=== PATIENT | female | born 1955 | race Caucasian/White ===

== ENCOUNTER 2017-05-28 01:28 | Inpatient (IN) | payer MEDICARE, BC ==
--- NOTE | 2017-05-24 19:04 | HISTORY AND PHYSICAL ---
DATE OF ADMISSION: May 28, 2017 IDENTIFICATION AND CHIEF COMPLAINT Louann is a 62-year-old woman with the chief complaint of right knee pain. HISTORY OF PRESENT ILLNESS The patient has a longstanding history of knee arthritis, progressive, painful and debilitating, refractory to conservative care. Surgery is indicated to relieve symptoms after failure of nonoperative measures. PAST MEDICAL HISTORY 1. Heart disease. 2. History of NE, status post stenting. 3. Hypertension, controlled on medication. 4. History of childhood seizure, none since the sixth grade. PAST SURGICAL HISTORY Cardiac catheterization. ALLERGIES BLEACH. No true drug allergies. CURRENT MEDICATIONS 1. Tramadol as needed. 2. Losartan 100 mg p.o. q. day. 3. Protonix 40 mg p.o. q. day. 4. Isordil 30 mg p.o. q. day. 5. Trazodone 2 mg q. day. 6. Levothyroxine 75 mcg p.o. q. day. 7. Spironolactone 50 mg p.o. q. day. SOCIAL HISTORY Negative for tobacco and alcohol use. FAMILY HISTORY Notable for father with heart disease, mother with stroke, and father also had diabetes. PHYSICAL EXAMINATION GENERAL: Louann is an obese female. She appears stated age. HEENT: Normocephalic, atraumatic. NECK: Supple. LUNGS: Clear. HEART: Regular. ABDOMEN: Soft. ORTHOPEDIC: Right knee has varus deformity. She has an effusion present. She is stiff at the end range. Extensor function intact. Gross stability is good. Calves nontender. Neurovascular function intact distally. Radiographs demonstrate end-stage knee arthritis. ASSESSMENT Right knee end-stage knee degenerative joint disease, progressive, painful, and debilitating, refractory to conservative care. PLAN Per patient request, we will proceed with total knee arthroplasty. The nature of this procedure, risks, benefits, and anticipated rehab course were reviewed, as well as the nonoperative alternatives. The risks of the procedure include, but are not limited to , major medical or anesthetic complication, infection, neurovascular injury, blood transfusion, stiffness, scarring, fracture, tendon rupture, instability, implant loosening, migration, or failure , persistent or recurrent pain, need for additional surgery, and other unforeseen. She understands and wishes to proceed. Signed permit was placed in the chart. No guarantee was given or implied. [facility]
[2017-05-27 14:18] LABS: INR 1.01
[2017-05-28] VITALS (10 sets, daily range): BP systolic 98–150; BP diastolic 64–89
[~2017-05-28] VITALS: Ht 157.5 cm; Wt 126.6 kg
[~2017-05-28 01:28] MED LIST: ISOS30TA54 PO; LEVO75TA73 PO; LOSA100T67 PO; PANT40TA65 PO; SPIR25TA78 PO; TIZA2CAP3 PO; TRAM-420 PO
[2017-05-28] MEDS: NORMOSOL R SOLN(*) 1000 ML BAG 1,000 ML IV PRN ×2 (06:22→11:00)
[2017-05-28] MEDS ORDERED: TRANEXAMIC AC 1000 MG/10ML SDV 1,000 MG in DEXTROSE 5% 50 ML BAG 50 ML IV ONE (07:45)
[2017-05-28] MEDS ORDERED: ceFAZolin(*) 2GM/D5W 50ML 50 ML IVPB ONE (07:45)
[2017-05-28] MEDS ORDERED: cloNIDine EPIDUR INJ 100MCG/ML 40 MCG, ROPIVACAINE 0.5% 20 ML VIAL 25 ML, EPINEPHrine H... INJ ONE (07:45)
[2017-05-28] MEDS ORDERED: MIDAZOLAM 2 MG/2 ML VIAL IVP ONE (07:45)
[2017-05-28] MEDS ORDERED: LIDOCAINE/SOD BICARB 8.4% SYR ID ONE (07:45)
[2017-05-28] MEDS ORDERED: FAMOTIDINE 20 MG TAB PO ONE (07:45)
[2017-05-28] MEDS ORDERED: fentaNYL CITR 250 MCG/5 ML AMP ONE (08:00)
[2017-05-28] MEDS ORDERED: DEXAMETHASONE SOD PHOS 10MG/ML ONE (08:01)
[2017-05-28] MEDS ORDERED: PROPOFOL EMUL(*) 10MG/ML 20 ML 40 ML ONE (08:01)
[2017-05-28] MEDS ORDERED: ONDANSETRON 4 MG/2 ML VIAL ONE (08:01)
[2017-05-28] MEDS ORDERED: LIDOCAINE MPF 1% 5 ML VIAL ONE (08:01)
[2017-05-28] MEDS ORDERED: ROPIVACAINE 0.5% 20 ML VIAL ONE (08:03)
[2017-05-28] MEDS ORDERED: EPINEPHrine HCL 1 MG/ML AMP ONE (08:04)
[2017-05-28] MEDS ORDERED: HALOPERIDOL LACT 5 MG/ML VIAL IM ONE (08:08)
[2017-05-28] MEDS ORDERED: SUGAMMADEX SOD 500 MG/5 ML SDV ONE (08:10)
[2017-05-28] MEDS ORDERED: ROCURONIUM BROM 10 MG/ML 10 ML ONE (08:30)
[2017-05-28] MEDS ORDERED: KETAMINE HCL 200 MG/20 ML MDV ONE ×2 (08:30→08:51)
[2017-05-28] MEDS ORDERED: ACETAMINOPHEN(*)1000 MG/100 ML 100 ML IVPB ONE (08:49)
[2017-05-28] MEDS ORDERED: NS 0.9% 20 ML SDV 20 ML ONE (09:13)
[2017-05-28] MEDS ORDERED: HYDROmorphone HCL 2 MG/ML SDV ONE (09:13)
[2017-05-28] MEDS ORDERED: LABETALOL HCL 20 MG/4 ML SYR ONE (09:25)
[2017-05-28] MEDS ORDERED: ePHEDrine 25 MG/5 ML DISP.SYR IVP ONE (09:25)
[2017-05-28] MEDS ORDERED: VANCOMYCIN 1 GM VIAL ONE (10:13)
[2017-05-28] MEDS ORDERED: FLUSH 10 ML SYR IVP PRN (11:30)
[2017-05-28] MEDS ORDERED: diphenhydrAMINE 25 MG CAP PO PRN (11:30)
[2017-05-28] MEDS ORDERED: MAGNESIUM HYDROXIDE* 30ML UDCP PO PRN (11:30)
[2017-05-28] MEDS ORDERED: ACETAMINOPHEN 325 MG TAB PO PRN (11:30)
[2017-05-28] MEDS ORDERED: PROMETHAZINE 25 MG/ML 1 ML AMP IVP PRN (11:30)
[2017-05-28] MEDS ORDERED: ZOLPIDEM TARTRATE 5 MG TAB PO PRN (11:30)
[2017-05-28] MEDS ORDERED: BENZOCAINE/MENTHOL 1 EACH LOZG PO PRN (11:30)
[2017-05-28] MEDS ORDERED: NORMOSOL R SOLN(*) 1000 ML BAG 1,000 ML IV PRN (11:30)
[2017-05-28] MEDS ORDERED: diphenhydrAMINE 50 MG/ML VIAL IVP PRN (11:30)
[2017-05-28] MEDS ORDERED: BISACODYL 10 MG SUPP PR PRN (11:30)
--- NOTE | 2017-05-28 11:50 | RADIOLOGY IMAGING REPORT ---
FACILITY: [facility] PATIENT NAME: Louann Molina : 1955 MR: [id number] V: [id number] EXAM DATE: ORDERING PHYSICIAN: ELMIRA HARRISON TECHNOLOGIST: Location: [facility] Patient: Lounan Molina : 1955 Visit/Account:[id number] Date of Sevice: 05/28/2017 Technique: KNEE LIMITED RIGHT HISTORY: POST OP, R TKA Comparison studies: None FINDINGS: Present is a right knee arthroplasty. There is gross anatomic alignment. No acute fractur e. Expected adjacent postoperative changes are noted. IMPRESSION: 1. Right knee arthroplasty with no evidence of acute hardware complication. Report Dictated By: Giovany Major DO at 05/28/2017 11:45 AM Report E-Signed By: Giovany Major DO at 05/28/2017 11:46 AM WSN:[id number]
[2017-05-28] MEDS ORDERED: PROMETHAZINE 25 MG/ML 1 ML AMP ONE (12:34)
--- NOTE | 2017-05-28 15:15 | Hospitalist Consultation ---
History of Present Illness Requesting Physician Dr. Menjivar Reason for Consult Medication Management Chief Complaint s/p right total knee replacement History of Present Illness The patient was admitted s/p right knee replacement. Patient has complaints of pain at this time. History Problems: (1) CAD (coronary artery disease) Status: Chronic (2) Hypertension Status: Chronic (3) Hypothyroidism Status: Chronic (4) History of myocardial infarction Status: Chronic Home Meds Reported Medications Spironolactone (SPIRONOLACTONE) 25 Mg Tablet, 50 MG PO HS, TAB 05/21/17 Levothyroxine Sodium (LEVOTHYROXINE SODIUM) 75 Mcg Tablet, 75 MCG PO HS, TAB 05/21/17 Tizanidine Hcl (TIZANIDINE HCL) 2 Mg Capsule, 2 MG PO HS, CAPSULE 05/21/17 Isosorbide Mononitrate (ISOSORBIDE MONONITRATE ER) 30 Mg Tab.er.24h, 30 MG PO HS 05/21/17 Pantoprazole Sodium (PANTOPRAZOLE SODIUM) 40 Mg Tablet.dr, 40 MG PO QHS, TAB.SR 05/21/17 Losartan Potassium (LOSARTAN POTASSIUM) 100 Mg Tablet, 100 MG PO QHS 05/21/17 Tramadol Hcl (TRAMADOL HCL) 50 Mg Tablet, 50 MG PO QHS, TAB 05/21/17 Allergies: Coded Allergies: Bleach (Sodium Hypochlorite) (Verified Allergy, Severe, SHORTNESS OF BREATH, 05/21/17) Patient History: DIABETES MELLITUS FATHER FH: CO (myocardial infarction) FATHER STROKE MOTHER Hx Smoking: No Smoking Status: Never Smoker Exposure to Second Hand Smoke?: No Caffeine Intake: Soda Caffeine/Cups Per Day: 2-3 soda per week Hx Alcohol Use: No Hx Substance Use Disorder: No Social Drug Use: Never History of IV Drug Use: No Review of Systems All Systems Reviewed/Normal: Yes, Except as Noted Exam Vital Signs Vital Signs Date Time Temp Pulse Resp B/P (MAP) Pulse Ox O2 Delivery O2 Flow Rate FiO2 05/28/17 13:20 81 16 97 05/28/17 13:20 97.7 149/81 (103) Nasal Cannula 2.0 General Appearance: Alert, Awake, No Acute Distress, Afebrile Cardiovascular: Regular Rate and Rhythm Respiratory: No Respiratory Distress, Clear to Auscultation Psych: Alert & Oriented X3, Appropriate Mood & Affect Assessment and Plan Problems: (1) Status post right knee replacement Status: Acute Assessment & Plan: She will be started on Aspirin 325mg daily for 30 days post operatively for DVT prophylaxis. She has no history of DVT or PE. (2) CAD (coronary artery disease) Status: Chronic Assessment & Plan: She is on chronic treatment with Isosorbide Mononitrate. (3) History of myocardial infarction Status: Chronic Assessment & Plan: She had a small Myocardial Infarction in 1998. She did not require intervention after having cardiac catheterization. Per cardiology note, she should be on cardiac monitoring for 24 hours post surgery along with cardiac enzymes. She should also get an EKG in the morning. (4) Hypertension Status: Chronic Assessment & Plan: She is on chronic treatment with Losartan and Spironolactone. Losartan will be started with hold parameters. We will hold Spironolactone at this time. (5) Hypothyroidism Status: Chronic Assessment & Plan: She is on chronic treatment with Levothyroxine. (6) Elevated serum creatinine Status: Chronic Assessment & Plan: Her creatinine prior to surgery was 1.2. We will recheck a BMP in the morning. (7) Morbid obesity with BMI of 50.0-59.9, adult Status: Chronic Venous Thromboembolism Antithrombotics Is Pt On Any Antithrombotics?: No Prophylaxis Tx Contraindicated Pharmacological Contraindicati: Surgical Contraindication МАРИНА EATON SPECIALTY MOLDER May 28, 2017 15:15
[2017-05-28] MEDS: APAP/HYDROCODONE 325/7.5 TAB PO PRN ×2 (17:28→18:32)
[2017-05-28] MEDS: DIAZEPAM 5 MG TAB PO PRN (17:28)
[2017-05-28] MEDS: CELECOXIB 200 MG CAP PO SCH (17:29)
[2017-05-28] MEDS: ceFAZolin(*) 1 GM VIAL 1 GM in NS(*) 0.9% 100 ML ADDVANT BAG 100 ML IVPB SCH (17:40)
[2017-05-28] MEDS: PANTOPRAZOLE SOD 40 MG TABEC PO SCH (20:34)
[2017-05-28] MEDS: LEVOTHYROXINE SOD 0.075 MG TAB PO SCH (20:34)
[2017-05-28] MEDS: ISOSORBIDE MONONITR 30MG TABCR PO SCH (20:34)
--- NOTE | 2017-05-28 20:55 | OPERATIVE REPORT 1 ---
EVENT DATE: May 28, 2017 SURGEON: Bola Menjivar MD ANESTHESIOLOGIST: Greg Villa MD ANESTHESIA: General plus adductor canal block. CASINO BANKER: Kyler Canchola PA-C PREOPERATIVE DIAGNOSIS Right knee degenerative joint disease. POSTOPERATIVE DIAGNOSIS Right knee degenerative joint disease. PROCEDURE PERFORMED Right total knee arthroplasty. ESTIMATED BLOOD LOSS Minimal. DRAINS None. SPECIMENS None. COMPLICATIONS None apparent. TOURNIQUET TIME Six minutes, then released due to venous tourniquet. IMPLANTS USED Malvin Triathlon knee system, 3 right PS femur, 4 standard tibial baseplate, a 33 mm universal, symmetric, all-polyethylene patellar button, and a 16 mm PS tibial tray liner. INDICATIONS The patient has intractable pain and disability related to end-stage knee arthritis. Surgery is indicated to relieve symptoms after failure of nonoperative measures. DESCRIPTION OF PROCEDURE The patient was taken to the operating room and placed supine on the operating table. An adductor canal block was placed by the anesthesiologist. General anesthesia was induced. Antibiotics and TXA were administered IV. The right lower extremity was prepped and draped in the usual sterile fashion for orthopedic surgery. Limb was exsanguinated with an Esmarch bandage. The tourniquet was inflated to 300 mmHg. A midline longitudinal incision was made and carried down through the skin and subcutaneous tissue to the extensor mechanism. At this point, it was evident that there was significant venous bleeding due to the morbidly obese leg, and the tourniquet was released. A tourniquet-less approach will be performed. Dissection was carried far enough medially to allow a medial parapatellar arthrotomy be performed. Due to obesity , the patella is not able to be everted, but this was subluxed to the side. The knee was brought into the flexed position. The fat pad, anterior horns, the menisci, and the cruciate ligaments were debrided. A subperiosteal medial release was initiated and titrated in a conservative fashion to attempt to balance the knee. A step drill was used to enter the distal femur. A 10 cm alignment guide was used to engage the isthmus. The cut was set for 6 degrees of valgus relative to the anatomic axis. A 10 mm resection block was applied, pinned, and cuts made with an oscillating saw. The AP sizing guide was applied for the distal femoral cut and positioned for 30 degrees of external rotation over to the posterior condyles. A size 3 was optimal without risk of notching. The four-in-one cutting block was applied. Posterior, anterior, posterior chamfer, and anterior chamfer cuts were made respectively. The PS block was applied and centered. Medial and lateral bone was removed through the box. The trial femur had nice [id number] fit. Attention was turned to tibial preparation. The extramedullary guide was applied and positioned for varus, valgus, posterior slope, and rotation. It was set to resect 9 mm from the relatively intact lateral tibial plateau. It was dropped down 2 mm to ensure an adequate cut. The block was pinned, extramedullary alignment check was made , and cuts were made with an oscillating saw. Osteophytes were removed. Gaps were relatively balanced and symmetric after osteophyte removal. The size 4 tibial baseplate provided optimal bony coverage without soft tissue overhang. This was inserted along with a trial femur. The knee was brought to extension. The patella was taken from a starting thickness of 20 to a residual of 14 with a patellar clamp and oscillating saw. The 13 provided optimal bony coverage without soft tissue overhang. Lug holes were drilled. The patella tracked nicely with the no-touch technique. Final tibial preparation consisted of assuring appropriate rotational and translational position of the component. The fin was punched. The boss was reamed. The surfaces were copiously lavaged. Mixed polymethyl methacrylate was made. The components were cemented in a single stage. When the cement was fully polymerized, the tourniquet was deflated. Hemostasis was assured. A 16 PS tibial tray liner filled up the gap ideally, allowing the knee to drop to full extension without hyperextension, providing optimal soft tissue tension and stability. The liner was inserted into the tibial baseplate. The joint was reduced. The arthrotomy was closed in flexion after copious lavage with #2 Ethibond. The subcutaneous tissue was lavaged. Hemostasis was assured. This was closed with 3-0 Vicryl, and the skin was closed with surgical tracey. Xeroform and 4 x 4's applied as dry, sterile dressing and a compression wrap. The patient was awakened from anesthesia and taken to the recovery room in stable condition having tolerated the procedure well. PLAN The plan for postoperative rehab is standard TKA rehab. [facility]
[2017-05-28] MEDS ORDERED: LOSARTAN POTASSIUM 50 MG TAB PO SCH (21:25)
[2017-05-29 00:15] VITALS: BP 161/81
[2017-05-29] MEDS: ceFAZolin(*) 1 GM VIAL 1 GM in NS(*) 0.9% 100 ML ADDVANT BAG 100 ML IVPB SCH ×2 (00:32→08:14)
[2017-05-29] MEDS: APAP/HYDROCODONE 325/7.5 TAB PO PRN ×5 (00:39→21:57)
[2017-05-29] MEDS: DIAZEPAM 5 MG TAB PO PRN ×3 (01:49→14:18)
[2017-05-29 05:12] VITALS: BP 152/79
--- NOTE | 2017-05-29 06:02 | EKG ---
FACILITY: PATIENT NAME: WARD POMPA : [id number] MR: [id number] V: [id number] EXAM DATE: ORDERING PHYSICIAN: МАРИНА EATON TECHNOLOGIST: NILO Test Reason : HX OF IN Blood Pressure : / mmHG Vent. Rate : 079 BPM Atrial Rate : 079 BPM P-R Int : 154 ms QRS Dur : 104 ms QT Int : 376 ms P-R-T Axes : 032 -37 025 degrees QTc Int : 431 ms Normal sinus rhythm Left axis deviation Abnormal ECG Confirmed by BLANCA STILES ([id number]) on 05/30/2017 2:16:23 PM Referred By: Confirmed By:BLANCA STILES
[2017-05-29] MEDS: ASPIRIN 325 MG TAB PO SCH (08:14)
[2017-05-29] MEDS: CELECOXIB 200 MG CAP PO SCH ×2 (08:14→17:07)
[2017-05-29] MEDS ORDERED: LOSARTAN POTASSIUM 50 MG TAB PO SCH (09:00)
--- NOTE | 2017-05-29 09:57 | Hospitalist Progress Note ---
Subjective Progress Notes Subjective Louann Molina is a 62-year-old woman with PMH of HTN, CAD, Remote h/o Seizure and the patient has a longstanding history of knee arthritis, progressive, painful and debilitating, refractory to conservative care. Surgery is indicated to relieve symptoms after failure of nonoperative measures. She complaints of right knee pain. She denies any N/V/D/SOB/CP etc Her post-op cardiac enzymes were WNL. Her BUN/Cr is 36/1.5 with GFR 35ml/min. She seems clinically dehydrated. Her Current meds are: 1. Tramadol as needed. 2. Losartan 100 mg p.o. q. day. 3. Protonix 40 mg p.o. q. day. 4. Isordil 30 mg p.o. q. day. 5. Trazodone 2 mg q. day. 6. Levothyroxine 75 mcg p.o. q. day. 7. Spironolactone 50 mg p.o. q. day. Patient Complains of: Neurological: No: Confusion, Weakness, Dizziness Cardiovascular: No: Chest Pain, Palpitations Respiratory: No: Cough, Congestion, Shortness of Breath Gastrointestinal: No Nausea, No Vomiting Genitourinary: No Dysuria, No Hematuria Musculoskeletal: Pain, Impaired Mobility, No: Sprain, Strain Physical Exam Vital Signs Date Time Temp Pulse Resp B/P (MAP) Pulse Ox O2 Delivery O2 Flow Rate FiO2 05/29/17 09:12 90 05/29/17 05:12 97.9 89 18 152/79 (103) Nasal Cannula 1.0 Intake and Output 05/30/17 07:00 Intake Total 110 ml Balance 110 ml IV Total 110 ml # Voids 1 General Appearance: Alert, Awake, No Acute Distress, Afebrile Neuro: No Gross deficits Eyes: PERRLA ENT: Normal Cardiovascular: Normal Rhythm & Peripheral Pulses Respiratory: No Respiratory Distress GI: Soft and Non-Tender Extremities: Soft and Non Tender Psych: Alert & Oriented X3, Appropriate Mood & Affect Result Diagram: 05/29/17 0516 Assessment and Plan Problems: (1) Status post right knee replacement Status: Acute Assessment & Plan: She will be started on Aspirin 325mg daily for 30 days post operatively for DVT prophylaxis. She has no history of DVT or PE. 05/29: Management as per surgery (2) CAD (coronary artery disease) Status: Chronic Assessment & Plan: She is on chronic treatment with Isosorbide Mononitrate. 05/29: Her cardiac enzymes are negative and I will add Atenolol 12.5mg po qd. I will continue her current meds (3) History of myocardial infarction Status: Chronic Assessment & Plan: She had a small Myocardial Infarction in 1998. She did not require intervention after having cardiac catheterization. Per cardiology note, she should be on cardiac monitoring for 24 hours post surgery along with cardiac enzymes. She should also get an EKG in the morning. 05/29: She is stable from cardiac point of view. (4) Hypertension Status: Chronic Assessment & Plan: She is on chronic treatment with Losartan and Spironolactone. Losartan will be started with hold parameters. We will hold Spironolactone at this time. (5) Hypothyroidism Status: Chronic Assessment & Plan: She is on chronic treatment with Levothyroxine. (6) Elevated serum creatinine Status: Chronic Assessment & Plan: Her creatinine prior to surgery was 1.2. We will recheck a BMP in the morning. 05/29: Her BUN/Cr is 36/1.5 with GFR 35ml/min and she clinically looks dehydrated. I will start her on IVF NS 100ml/h and recheck her BMP in am (7) Morbid obesity with BMI of 50.0-59.9, adult Status: Chronic Condition stable Time Spent on Plan of Care: < 30 min Copies to: ELMIRA HARRISON MD Exam Sepsis Risk: No Definite Risk RADHA BLOOD MD May 29, 2017 09:57
[2017-05-29 11:04] VITALS: BP 177/113
[2017-05-29] MEDS: ATENOLOL 25 MG TAB PO SCH (11:14)
[2017-05-29] MEDS: NS(*) 0.9% 1000 ML BAG 1,000 ML IV PRN ×2 (11:34→21:57)
[2017-05-29 12:34] VITALS: Ht 157.5 cm; Wt 126.6 kg
[2017-05-29 14:56] VITALS: BP 151/81
[2017-05-29 19:58] VITALS: BP 162/79
[2017-05-29] MEDS: ISOSORBIDE MONONITR 30MG TABCR PO SCH (20:33)
[2017-05-29] MEDS: PANTOPRAZOLE SOD 40 MG TABEC PO SCH (20:33)
[2017-05-29] MEDS: LOSARTAN POTASSIUM 50 MG TAB PO SCH (20:34)
[2017-05-29] MEDS: LEVOTHYROXINE SOD 0.075 MG TAB PO SCH (20:34)
[2017-05-29 23:34] VITALS: BP 160/68
[2017-05-30] VITALS (7 sets, daily range): BP systolic 132–158; BP diastolic 68–81
[2017-05-30] MEDS: APAP/HYDROCODONE 325/7.5 TAB PO PRN ×5 (03:55→21:27)
[2017-05-30] MEDS: CELECOXIB 200 MG CAP PO SCH ×2 (08:11→17:25)
[2017-05-30] MEDS: ASPIRIN 325 MG TAB PO SCH (08:16)
[2017-05-30] MEDS: DIAZEPAM 5 MG TAB PO PRN ×3 (08:16→21:27)
[2017-05-30] MEDS: ATENOLOL 25 MG TAB PO SCH (08:17)
[2017-05-30] MEDS: NS(*) 0.9% 1000 ML BAG 1,000 ML IV PRN (09:11)
--- NOTE | 2017-05-30 10:07 | Hospitalist Progress Note ---
Subjective Progress Notes Subjective She has no complaints this morning. Patient Complains of: Cardiovascular: No: Chest Pain Respiratory: No: Shortness of Breath Physical Exam Vital Signs Date Time Temp Pulse Resp B/P (MAP) Pulse Ox O2 Delivery O2 Flow Rate FiO2 05/30/17 09:49 97.9 106 20 139/80 (99) 96 Nasal Cannula 3.0 Intake and Output 05/31/17 07:00 Intake Total 995 ml Balance 995 ml Intake Oral 0 ml IV Total 995 ml # Voids 1 General Appearance: Alert, Awake, No Acute Distress, Afebrile Cardiovascular: Regular Rate and Rhythm Respiratory: No Respiratory Distress, Clear to Auscultation Psych: Alert & Oriented X3, Appropriate Mood & Affect Result Diagram: 05/30/17 0535 Assessment and Plan Problems: (1) Status post right knee replacement Status: Acute Assessment & Plan: She will be started on Aspirin 325mg daily for 30 days post operatively for DVT prophylaxis. She has no history of DVT or PE. (2) CAD (coronary artery disease) Status: Chronic Assessment & Plan: She is on chronic treatment with Isosorbide Mononitrate. Her cardiac enzymes were negative and Atenolol 12.5mg po qd was added. (3) History of myocardial infarction Status: Chronic Assessment & Plan: She had a small Myocardial Infarction in 1998. She did not require intervention after having cardiac catheterization. Per cardiology note, she should be on cardiac monitoring for 24 hours post surgery along with cardiac enzymes. She is stable from cardiac point of view. (4) Hypertension Status: Chronic Assessment & Plan: She is on chronic treatment with Losartan and Spironolactone. Losartan will be started with hold parameters. We will hold Spironolactone at this time. (5) Hypothyroidism Status: Chronic Assessment & Plan: She is on chronic treatment with Levothyroxine. (6) Elevated serum creatinine Status: Chronic Assessment & Plan: Her creatinine prior to surgery was 1.2. Today, her Creatinine is 1.5. We tried IV hydration yesterday. She will continue oral hydration today. We will recheck a BMP in the morning. (7) Morbid obesity with BMI of 50.0-59.9, adult Status: Chronic Exam Sepsis Risk: No Definite Risk МАРИНА EATON May 30, 2017 10:07
[2017-05-30] MEDS: LOSARTAN POTASSIUM 50 MG TAB PO SCH (21:00)
[2017-05-30] MEDS: ISOSORBIDE MONONITR 30MG TABCR PO SCH (21:27)
[2017-05-30] MEDS: LEVOTHYROXINE SOD 0.075 MG TAB PO SCH (21:27)
[2017-05-30] MEDS: PANTOPRAZOLE SOD 40 MG TABEC PO SCH (21:27)
[2017-05-31 01:31] VITALS: BP 120/83
[2017-05-31] MEDS: APAP/HYDROCODONE 325/7.5 TAB PO PRN ×3 (01:37→11:21)
[2017-05-31 05:33] VITALS: BP 128/76
[2017-05-31] MEDS: DIAZEPAM 5 MG TAB PO PRN ×2 (05:37→11:21)
[2017-05-31 07:37] VITALS: BP 149/78
[2017-05-31] MEDS ORDERED: HYDR-4308 PO (08:51)
[2017-05-31] MEDS ORDERED: DIA5 PO (08:53)
[2017-05-31] MEDS ORDERED: ASPI-764 PO (09:17)
[2017-05-31] MEDS: ATENOLOL 25 MG TAB PO SCH (09:57)
[2017-05-31] MEDS: CELECOXIB 200 MG CAP PO SCH (09:57)
[2017-05-31] MEDS: ASPIRIN 325 MG TAB PO SCH (09:57)
[2017-05-31] MEDS ORDERED: ATEN-65 PO (10:15)
--- NOTE | 2017-05-31 13:01 | Hospitalist Progress Note ---
Subjective Progress Notes Subjective Louann Molina is a 62-year-old woman with PMH of HTN, CAD, Remote h/o Seizure and the patient has a longstanding history of knee arthritis, progressive, painful and debilitating, refractory to conservative care. Surgery is indicated to relieve symptoms after failure of nonoperative measures. She complaints of right knee pain. She denies any N/V/D/SOB/CP etc Her post-op cardiac enzymes were WNL. Her BUN/Cr is 36/1.5 with GFR 35ml/min. She seems clinically dehydrated. Her Current meds are: 1. Tramadol as needed. 2. Losartan 100 mg p.o. q. day. 3. Protonix 40 mg p.o. q. day. 4. Isordil 30 mg p.o. q. day. 5. Trazodone 2 mg q. day. 6. Levothyroxine 75 mcg p.o. q. day. 7. Spironolactone 50 mg p.o. q. day. 05/31: She is afebrile and hemodynamically stable without any complaint. She is being d /c'd by the surgery and she is stable from medical point of view to go get further rehabilitation. Her GFR is 38ml/min and she follows psychotherapist counselor in [place]. Patient Complains of: Neurological: No: Confusion, Weakness, Dizziness Cardiovascular: No: Chest Pain, Palpitations Respiratory: No: Cough, Congestion, Shortness of Breath, Wheezing Gastrointestinal: No Nausea, No Vomiting, No Flatus Genitourinary: No Dysuria, No Hematuria Musculoskeletal: Pain, Impaired Mobility, No: Sprain, Strain Physical Exam Vital Signs Date Time Temp Pulse Resp B/P (MAP) Pulse Ox O2 Delivery O2 Flow Rate FiO2 05/31/17 08:00 Room Air 05/31/17 08:00 95 05/31/17 07:37 97.9 74 18 149/78 (101) 05/29/17 09:10 1.0 Intake and Output 06/01/17 07:00 Intake Total 0 ml Balance 0 ml Intake Oral 0 ml General Appearance: Alert, Awake, No Acute Distress, Afebrile Neuro: No Gross deficits Eyes: PERRLA ENT: Normal Cardiovascular: Regular Rate and Rhythm Respiratory: No Respiratory Distress GI: Soft and Non-Tender Extremities: Soft and Non Tender (tender R-knee) Psych: Alert & Oriented X3 Result Diagram: 05/31/17 0529 Assessment and Plan Problems: (1) Status post right knee replacement Status: Acute Assessment & Plan: She will be started on Aspirin 325mg daily for 30 days post operatively for DVT prophylaxis. She has no history of DVT or PE. 05/31: She is stable and being d/c'd on Aspirin 325mg po qd. f/u with Dr. Harrison and f/u with her psychotherapist counselor as scheduled (2) CAD (coronary artery disease) Status: Chronic Assessment & Plan: She is on chronic treatment with Isosorbide Mononitrate. Her cardiac enzymes were negative and Atenolol 12.5mg po qd was added. 05/31: I have added Atenolol in her medications for her BP and HR due to her underlying CAD (3) History of myocardial infarction Status: Chronic Assessment & Plan: She had a small Myocardial Infarction in 1998. She did not require intervention after having cardiac catheterization. Per cardiology note, she should be on cardiac monitoring for 24 hours post surgery along with cardiac enzymes. She is stable from cardiac point of view. (4) Hypertension Status: Chronic Assessment & Plan: She is on chronic treatment with Losartan and Spironolactone. Losartan will be started with hold parameters. We will hold Spironolactone at this time. 05/31: Added Atenolol 12.5mg po qd (5) Hypothyroidism Status: Chronic Assessment & Plan: She is on chronic treatment with Levothyroxine. (6) Elevated serum creatinine Status: Chronic Assessment & Plan: Her creatinine prior to surgery was 1.2. Today, her Creatinine is 1.5. We tried IV hydration yesterday. She will continue oral hydration today. We will recheck a BMP in the morning. (7) Morbid obesity with BMI of 50.0-59.9, adult Status: Chronic Condition stable Time Spent on Plan of Care: < 30 min Copies to: ELMIRA HARRISON MD Exam Sepsis Risk: No Definite Risk RADHA BLOOD MD May 31, 2017 13:01
== END 2017-05-31 11:45 | disposition home health service (06) | DRG 470 ==
LOC: OR 01:28 → MED 13:20
PROVIDERS: ADMIT Orthopaedic Surgery; ATTEND Orthopaedic Surgery
PROC: 0SRC0J9 Replacement of Right Knee Joint with Synthetic Substitute, Cemented, Open Approach (ICD-10-PCS; principal; 2017-05-28 08:24)
DX: M17.11 Unilateral primary osteoarthritis, right knee (principal); Z68.43 Body mass index [BMI] 50.0-59.9, adult; E66.01 Morbid (severe) obesity due to excess calories; M21.161 Varus deformity, not elsewhere classified, right knee; I10 Essential (primary) hypertension; I25.10 Atherosclerotic heart disease of native coronary artery without angina pectoris; E03.9 Hypothyroidism, unspecified; I25.2 Old myocardial infarction; Z95.5 Presence of coronary angioplasty implant and graft
CPT/HCPCS: 36415; 82310; 82374; 82435; 82565; 82947; 84132; 84295; 84484; 84520; 85610; 86850; 86900; 86901; 93005; 94667; 97161; C1713; C1776; J0131; J0171; J0690; J0735; J1100; J1170; J1630; J1885; J2001; J2250; J2405; J2550; J2704; J2795; J3010; J3370; J3490; J7030; J7050; J7060